=== PATIENT | female | born 1940 | race Caucasian/White ===

== ENCOUNTER → 2016-06-11 | Outpatient (CLI) | payer MEDICARE, BC ==
--- NOTE | 2016-06-11 17:12 | CR ---
EXAMINATION: Left femur and left knee HISTORY: Hardware COMPARISON: 12/04/2015 TECHNIQUE: 3 views of the left knee and 2 views of the left femur. FINDINGS: Again noted is screw and plate hardware fixating the distal femur. There is increased scle rosis within the region of the fracture suggesting healing. Left total knee hardware is also noted u nchanged in position and alignment. No joint effusion or soft tissue swelling. Osseous structures ap pear osteopenic. IMPRESSION: 1. Stable hardware fixation of a distal femur fracture, unchanged in position and alignment.
== END ==
LOC: MW.CHORTHO 07:58
PROVIDERS: ATTEND Orthopaedic Surgery
DX: Z96.7 Presence of other bone and tendon implants (principal); S72.402A Unspecified fracture of lower end of left femur, initial encounter for closed fracture; Z87.81 Personal history of (healed) traumatic fracture; S72.402D Unspecified fracture of lower end of left femur, subsequent encounter for closed fracture with routine healing; Z96.652 Presence of left artificial knee joint
CPT/HCPCS: 73552-26-LT; 73552-LT; 73562-26-LT; 73562-LT; G0463

== ENCOUNTER 2017-01-08 13:36 | Emergency (ER) | payer OTHER, MEDICARE, BC ==
[2017-01-08] MEDS ORDERED: Diphtheria,Pertussis(Acell),Tetanus Vaccine 0.5 ML Syringe IM ONE (13:38)
--- NOTE | 2017-01-08 13:39 | EDM.PDOC ---
ED HPI GENERAL MEDICAL PROBLEM - General Chief Complaint: Laceration Stated Complaint: CUT ON HEAD Time Seen by Provider: 01/08/17 13:39 Source of Information: Reports: Patient - History of Present Illness INITIAL COMMENTS - FREE TEXT/NARRATIVE: HISTORY AND PHYSICAL: History of present illness: []Patient fell forward striking her forehead on the edge of a sink causing a laceration, she denies loss of consciousness neck pain no fever nausea vomiting chills sweats no chest pain shortness breath headache dizziness or bowel or urine symptoms. Patient does have a large contusion on the forehead associated as well left temporal area and forehead 1.5 inch linear laceration just left of center on forehead Review of systems: As per history of present illness and below otherwise all systems reviewed and negative. Past medical history: As per history of present illness and as reviewed below otherwise noncontributory. Surgical history: As per history of present illness and as reviewed below otherwise noncontributory. Social history: No reported history of drug or alcohol abuse. Family history: As per history of present illness and as reviewed below otherwise noncontributory. Physical exam: HEENT: Atraumatic, normocephalic, pupils reactive, negative for conjunctival pallor or scleral icterus, mucous membranes moist, throat clear, neck supple, nontender, trachea midline. Lungs: Clear to auscultation, breath sounds equal bilaterally, chest nontender. Heart: S1S2, regular, negative for clicks, rubs, or JVD. Abdomen: Soft, nondistended, nontender. Negative for masses or hepatosplenomegaly. Negative for costovertebral tenderness. Pelvis: Stable nontender. Genitourinary: Deferred. Rectal: Deferred. Extremities: Atraumatic, negative for cords or calf pain. Neurovascular unremarkable. Neuro: Awake, alert, oriented. Cranial nerves II through XII unremarkable. Cerebellum unremarkable. Motor and sensory unremarkable throughout. Exam nonfocal. Skin as per history of present illness otherwise unremarkable Diagnostics: []CT head no contrast CT cervical spine no contrast Therapeutics: []Status is updated Wound is cleansed and explored Standard wound care instructions #3 5-0 Prolene sutures interrupted No complication no complaint Sutures out 5 days Impression: []Laceration 1.5 inch linear forehead Definitive disposition and diagnosis as appropriate pending reevaluation and review of above. forehead Pain Score (Numeric/FACES): 7 - Related Data Allergies Allergy/AdvReac Type Severity Reaction Status Date / Time codeine Allergy Other Verified 01/08/17 13:38 Home Meds: Home Meds Acetaminophen/HYDROcodone [[place] 325-10 MG] 1 - 2 tab PO Q4H PRN #80 tablet [Rx] Docusate Sodium [Colace] 100 mg PO BID #60 cap 04/15/15 [Rx] Enoxaparin [Lovenox] 40 mg SUBCUT Q24H #20 syringe 04/15/15 [Rx] Nystatin [Nystop] 1 gm TOP BID PRN #1 bottle 04/15/15 [Rx] traMADol [Ultram] 50 - 100 mg PO Q6H PRN #60 tablet 04/15/15 [Rx] Past Medical History HEENT History: Reports: Other (See Below) Other HEENT History: Wears hearing aids to the left ear 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 - Infectious Disease History Infectious Disease History: Reports: Chicken Pox, Measles - Past Surgical History Musculoskeletal Surgical History: Reports: Knee Replacement, Other (See Below) Social & Family History - Family History Oncologic: Reports: Colon, Liver - Tobacco Use Smoking Status *Q: Never Smoker Second Hand Smoke Exposure: No - Recreational Drug Use Recreational Drug Use: No ED ROS GENERAL - Review of Systems Review Of Systems: ROS reveals no pertinent complaints other than HPI. ED EXAM, SKIN/RASH Exam: See Below Course - Vital Signs Last Recorded V/S: Last Vital Signs Temp 36.3 C 01/08/17 13:36 Pulse 115 H 01/08/17 13:36 Resp 18 01/08/17 13:36 BP 162/93 H 01/08/17 13:36 Pulse Ox 95 01/08/17 13:36 - Orders/Labs/Meds Orders: Active Orders 24 hr Category Date Time Status Vaccines to be Administered [RC] PER UNIT ROUTINE Care 01/08/17 13:39 Active Meds: Medications Discontinued Medications Generic Name Dose Route Start Last Admin Trade Name Freq PRN Reason Stop Dose Admin Diphtheria/Tetanus/Acell Pertussis 0.5 ml 01/08/17 13:38 01/08/17 14:01 Adacel IM 01/08/17 13:39 0.5 ml .ONCE ONE Administration Lidocaine HCl 20 ml 01/08/17 14:37 Xylocaine 1% INJECT 01/08/17 14:38 ONETIME ONE Departure - Departure Time of Disposition: 14:47 Disposition: Home, Self-Care 01 Condition: Good Clinical Impression: Laceration - Discharge Information Referrals: PCP,None [Primary Care Provider] - Forms: ED Department Discharge Additional Instructions: Bacitracin and bandaging Standard wound care instructions Keep wound clean and dry for 48 hours Sutures out in 5 days Return to ER if fever nausea vomiting chills sweats redness warmth or pus drainage should this develop Standard head injury precaution Follow-up with primary care as needed in the interim return to ER in 5 days for suture removal The following information is given to patients seen in the emergency department who are being discharged to home. This information is to outline your options for follow-up care. We provide all patients seen in our emergency department with a follow-up referral. The need for follow-up, as well as the timing and circumstances, are variable depending upon the specifics of your emergency department visit. If you don't have a primary care physician on staff, we will provide you with a referral. We always advise you to contact your personal physician following an emergency department visit to inform them of the circumstance of the visit and for follow-up with them and/or the need for any referrals to a consulting specialist. The emergency department will also refer you to a specialist when appropriate. This referral assures that you have the opportunity for follow-up care with a specialist. All of these measure are taken in an effort to provide you with optimal care, which includes your follow-up. Under all circumstances we always encourage you to contact your private physician who remains a resource for coordinating your care. When calling for follow-up care, please make the office aware that this follow-up is from your recent emergency room visit. If for any reason you are refused follow-up, please contact the [facility] emergency department at and asked to speak to the emergency department charge nurse. - My Orders Last 24 Hours: My Active Orders 01/08/17 13:39 Vaccines to be Administered [RC] PER UNIT ROUTINE - Assessment/Plan Last 24 Hours: My Active Orders 01/08/17 13:39 Vaccines to be Administered [RC] PER UNIT ROUTINE
[2017-01-08] MEDS ORDERED: Lidocaine 1% 20 ML MDV INJECT ONE (14:37)
--- NOTE | 2017-01-08 14:41 | CT ---
EXAMINATION: Non contrast CT head. Coronal and sagittal reformats. HISTORY: Pain FINDINGS: No evidence of intra or extra axial hemorrhage, mass, midline shift, hydrocephalus or edema. Mild pe riventricular hypodensities noted. No hypoattenuation changes in the major vascular territories to suggest acute infarct. There there 2 punctate hyperdensities noted near the falx, along the frontal lobe and within the occi pital region, likely tiny calcifications. No evidence of substantial vascular calcifications. Paranasal sinuses and mastoid air cells are well aerated without substantial findings. The orbits and globes are symmetric. There is a subcutaneous laceration within the left frontal region. Pituitary fossa appears unremarkable. Calvarium is intact. No evidence of skull fracture. IMPRESSION: 1. No acute intracranial findings. 2. Left frontal cutaneous laceration. 3. Mild small vessel ischemic change.
--- NOTE | 2017-01-08 14:44 | CT ---
EXAMINATION: CT cervical spine HISTORY: Pain COMPARISON: None TECHNIQUE: Axial CT images obtained through the cervical spine without contrast. Coronal and sagittal reconstructions obtained. FINDINGS: The cervical spinal alignment is normal. The vertebral body heights appear maintained. C4-C 5 vertebra are fused. Bone mineralization appears normal to mildly osteopenic. No fracture or acute o sseous abnormality is noted. No osseous spinal canal or neural foraminal stenosis. No bulky cervical lymphadenopathy. The paravertebral soft tissues otherwise appear normal. Apices are grossly clear. There is a 3 mm nodule within the posterior aspect of the right upper lobe. IMPRESSION: 1. No acute cervical spinal abnormality. 2. Tiny 3 mm nodule within the right upper lobe. If the patient has known risk factors consider a 12 month follow-up.
[2017-01-08 15:15] VITALS: BP 157/103
== END 2017-01-08 15:09 | disposition home or self-care (01) ==
LOC: MW.ED 13:36
DX: S01.81XA Laceration without foreign body of other part of head, initial encounter (principal); Z88.5 Allergy status to narcotic agent; Z23 Encounter for immunization; W01.118A Fall on same level from slipping, tripping and stumbling with subsequent striking against other sharp object, initial encounter
CPT/HCPCS: 12013; 70450; 70450-26; 72125; 72125-26; 90471; 90715; 99282; 99283-25

== ENCOUNTER 2017-01-13 14:06 | Emergency (ER) | payer OTHER, MEDICARE, BC ==
[2017-01-13 14:21] VITALS: BP 150/67
== END 2017-01-13 14:20 | disposition left against medical advice (07) ==
LOC: MW.ED 14:06
DX: Z53.21 Procedure and treatment not carried out due to patient leaving prior to being seen by health care provider (principal)
CPT/HCPCS: 99281

== ENCOUNTER 2021-02-26 15:42 | Emergency (ER) | payer MEDICARE, BC ==
[2021-02-26] MEDS ORDERED: Lidocaine 2% 5 ML SDV INJECT ONE (16:08)
--- NOTE | 2021-02-26 16:13 | EDM.PDOC ---
ED HPI GENERAL MEDICAL PROBLEM - General Chief Complaint: Laceration Stated Complaint: CUT FINGER Time Seen by Provider: 02/26/21 15:44 Source of Information: Reports: Patient History Limitations: Reports: No Limitations - History of Present Illness INITIAL COMMENTS - FREE TEXT/NARRATIVE: Patient is a 80-year-old female who presents today for laceration to the tip of her left index finger said it happened while she was cutting with a knife. She tried to put a Band-Aid on it but it did not approximate the other. She denies any other injury denies any pain or tingling denies any other medical complaints. 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 - Infectious Disease History Infectious Disease History: Reports: Chicken Pox, Measles - Past Surgical History HEENT Surgical History: Reports: Cataract Surgery Musculoskeletal Surgical History: Reports: Knee Replacement, Other (See Below) Other Musculoskeletal Surgeries/Procedures:: ORIF femur fracture Social & Family History - Family History Family Medical History: No Pertinent Family History Oncologic: Reports: Colon, Liver - Tobacco Use Tobacco Use Status *Q: Never Tobacco User - Caffeine Use Caffeine Use: Reports: None - Recreational Drug Use Recreational Drug Use: No ED ROS GENERAL - Review of Systems Review Of Systems: See Below Constitutional: Reports: No Symptoms HEENT: Reports: No Symptoms Respiratory: Reports: No Symptoms Cardiovascular: Reports: No Symptoms Endocrine: Reports: No Symptoms GI/Abdominal: Reports: No Symptoms : Reports: No Symptoms Musculoskeletal: Reports: No Symptoms Skin: Reports: Other (lac finger) Neurological: Reports: No Symptoms Psychiatric: Reports: No Symptoms Hematologic/Lymphatic: Reports: No Symptoms Immunologic: Reports: No Symptoms ED EXAM, SKIN/RASH Exam: See Below Exam Limited By: No Limitations General Appearance: Alert, WD/WN, No Apparent Distress Eye Exam: Bilateral Eye: EOMI Ears: Normal External Exam Nose: Normal Inspection Head: Atraumatic Neck: Normal Inspection Respiratory/Chest: No Respiratory Distress Cardiovascular: Normal Peripheral Pulses Extremities: Normal Inspection, Normal Range of Motion, Non-Tender Neurological: Alert, Oriented, Confused Skin: Other (5 mm black tip of index finger) ED SKIN PROCEDURES - Laceration/Wound Repair Digit - 2nd (Index) Appearance: Superficial Distal NVT: Neuro & Vascular Intact Anesthetic Type: Local Local Anesthesia - Lidocaine (Xylocaine): 2% Plain Local Anesthetic Volume: 1cc Saline Irrigation (cc's): 1,000 Exploration/Debridement/Repair: Wound Explored Closed with: Sutures Lac/Wound length In cm: 2 Suture Size: 6-0 Course - Vital Signs Last Recorded V/S: Last Vital Signs Temp 96.8 F L 02/26/21 15:50 Pulse 94 02/26/21 15:50 Resp 16 02/26/21 15:50 BP 207/90 H 02/26/21 15:50 Pulse Ox 97 02/26/21 15:50 - Orders/Labs/Meds Meds: Medications Discontinued Medications Generic Name Dose Route Start Last Admin Trade Name Red PRN Reason Stop Dose Admin Lidocaine 5 ml 02/26/21 16:08 Lidocaine 2% 5 Ml Sdv INJECT 02/26/21 16:09 ONETIME ONE Lidocaine HCl Confirm 02/26/21 16:17 Lidocaine 1% 5 Ml Sdv Administered 02/26/21 16:18 Dose 5 ml .ROUTE .STK-MED ONE - Re-Assessments/Exams Free Text/Narrative Re-Assessment/Exam: 02/26/21 16:13 Patient is a 80-year-old female presents today for a laceration to the tip of her left finger. We repaired it with sutures. Patient also had elevated blood pressure but states her blood pressure is always high whenever she comes to the hospital. She is asymptomatic we will recommend the patient follow-up with her primary care for control of her blood pressure. 02/26/21 16:27 Blood pressure improved to 170/80 again patient asymptomatic will be discharged. Departure - Departure Time of Disposition: 16:11 Disposition: Home, Self-Care 01 Condition: Good Clinical Impression: Laceration of finger - Discharge Information *PRESCRIPTION DRUG MONITORING PROGRAM REVIEWED*: Not Applicable *COPY OF PRESCRIPTION DRUG MONITORING REPORT IN PATIENT DAVID: Not Applicable Instructions: Laceration Care, Adult Forms: ED Department Discharge Additional Instructions: You were seen today for laceration to the tip of your finger. We repaired it with sutures. We also noted your blood pressure is really high but you state you do not have any symptoms from it and it is always high. We do recommend that you follow-up with your primary care physician for this elevated blood pressure. The following information is given to patients seen in the emergency department who are being discharged to home. This information is to outline your options for follow-up care. We provide all patients seen in our emergency department with a follow-up referral. The need for follow-up, as well as the timing and circumstances, are variable depending upon the specifics of your emergency department visit. If you don't have a primary care physician on staff, we will provide you with a referral. We always advise you to contact your personal physician following an emergency department visit to inform them of the circumstance of the visit and for follow-up with them and/or the need for any referrals to a consulting specialist. The emergency department will also refer you to a specialist when appropriate. This referral assures that you have the opportunity for follow-up care with a specialist. All of these measure are taken in an effort to provide you with opt imal care, which includes your follow-up. Under all circumstances we always encourage you to contact your private physician who remains a resource for coordinating your care. When calling for follow-up care, please make the office aware that this follow-up is from your recent emergency room visit. If for any reason you are refused follow-up, please contact the [facility] Emergency Department at and asked to speak to the emergency department charge nurse. Please follow up with your primary care physician. If you do not have a primary care physician, see below: [facility] [address] [place] [id number] [facility] [address] [place] [id number] Sepsis Event Note (ED) - Evaluation Sepsis Screening Result: No Definite Risk - Focused Exam Vital Signs: Vital Signs Temp Pulse Resp BP Pulse Ox 02/26/21 15:50 96.8 F L 94 16 207/90 H 97
[2021-02-26 16:48] VITALS: BP 153/75; PULSE 97
== END 2021-02-26 16:48 | disposition home or self-care (01) ==
LOC: MW.ED 15:42
DX: S61.211A Laceration without foreign body of left index finger without damage to nail, initial encounter (principal); I10 Essential (primary) hypertension; Z88.5 Allergy status to narcotic agent; W26.0XXA Contact with knife, initial encounter
CPT/HCPCS: 12001; 99282-25